=== PATIENT | female | born 1940 | race Caucasian/White ===

== ENCOUNTER 2016-05-11 18:39 | Inpatient (IN) | payer OTHER, MEDICARE ==
[~2016-05-11] VITALS: Ht 154.9 cm; Wt 46.3 kg
[2016-05-11 18:52] VITALS: BP 76/37
[2016-05-11] MEDS ORDERED: Ipratropium 0.02% Inh Soln 2.5ml UD HHN ONE (19:00)
[2016-05-11] MEDS ORDERED: Albuterol ud Inhalation HHN ONE (19:00)
[2016-05-11] MEDS ORDERED: Levalbuterol Inh UD 1.25mg/0.5ml ONE (19:08)
[2016-05-11] MEDS ORDERED: Diltiazem 125mg/25ml Inj IV ONE ×2 (19:10→22:12)
[2016-05-11] MEDS ORDERED: ZYRTEC10 MG ORAL (19:16)
[2016-05-11] MEDS ORDERED: LEVOTHYROXINE100 MCG ORAL (19:16)
[2016-05-11] MEDS ORDERED: SINGULAIR10 MG ORAL (19:16)
[2016-05-11] MEDS ORDERED: CLARITIN-D 241 EACH PO (19:16)
[2016-05-11] MEDS ORDERED: DIGOXIN0.25 MG/5 PO (19:16)
[2016-05-11] MEDS ORDERED: XARELTO10 MG ORAL (19:16)
[2016-05-11] MEDS ORDERED: PANTOPRAZOLE SO40 MG ORAL (19:16)
[2016-05-11] MEDS ORDERED: HYDROCHLOROTHIA25 MG ORAL (19:16)
[2016-05-11] MEDS ORDERED: COLCRYS0.6 M1 PO (19:16)
[2016-05-11] MEDS ORDERED: VALIUM5 MG ORAL (19:16)
[2016-05-11] MEDS ORDERED: CARDIZEM60 MG ORAL (19:16)
[2016-05-11] MEDS ORDERED: K-DUR10 ME1 ORAL (19:16)
[2016-05-11] MEDS ORDERED: Diltiazem 50mg/10ml Inj IVP ONE ×2 (20:00→20:10)
[2016-05-11] MEDS ORDERED: Solu-MEDROL 125mg Inj IVP ONE (20:00)
[2016-05-11 20:03] LABS: MEAN CORPUSCULAR HEMOGLOBIN 28.6 PG (27.0-31.0); MEAN CORPUSCULAR HGB CONC 31.9 G/DL (32.0-36.0); MEAN CORPUSCULAR VOLUME 89 FL (80-99); MEAN PLATELET VOLUME 6.5 FL (6.5-10.1); PLATELET COUNT 183 K/UL (150-450); RED BLOOD COUNT 5.43 M/UL (4.20-5.40); WHITE BLOOD COUNT 18.9 K/UL (4.8-10.8)
--- NOTE | 2016-05-11 20:04 | Emergency Room Report ---
History of Present Illness General Chief Complaint: Dyspnea/Respdistress Source: Patient, EMS Present Illness HPI 75 YO F with known atrial fib on cardizem/digoxin presents with SOB since last night "because my heart rate was fast" and SOB. + Asthma. Non-smoker. Took AM dose of Dilt. Denies cough, fever/chills, chest pain, abd pain. Usually follows up at [facility]. EMS endorses Atrial fib with RVR and wheezing on exam. Allergies: Coded Allergies: LEVOFLOXACIN (Verified Allergy, Unknown, 05/11/16) Patient History Past Medical History: old chart reviewed, AFib, asthma Past Surgical History: none Pertinent Family History: none Social History: Denies: alcohol use, drug use, smoking Last Menstrual Period: na Now: No Immunizations: UTD Reviewed Nursing Documentation: PMH: Agreed, PSxH: Agreed Nursing Documentation-PMH Past Medical History: No History, Except For Hx Cardiac Problems: Yes - afib Hx Asthma: Yes Review of Systems All Other Systems: negative except mentioned in HPI Physical Exam Vital Signs Date Time Temp Pulse Resp B/P Pulse Ox O2 Delivery O2 Flow Rate FiO2 05/11/16 18:36 102.0 89 26 76/37 99 Non-Rebreather 15.0 Sp02 EP Interpretation: abnormal General Appearance: normal inspection, no apparent distress, alert, GCS 15, non -toxic, mild distress Head: normocephalic, atraumatic Eyes: bilateral eye EOMI, bilateral eye PERRL ENT: normal ENT inspection, hearing grossly normal, normal voice Neck: normal inspection, full range of motion, supple, no bony tend Respiratory: normal inspection, decreased breath sounds, wheezing Cardiovascular #1: regular rate, rhythm, no edema, no gallop, tachycardia, irregularly irregular Gastrointestinal: normal inspection, normal bowel sounds, non tender, soft, no guarding, no hernia Genitourinary: no CVA tenderness Musculoskeletal: normal inspection, back normal, normal range of motion, Aj' s Sign negative Neurologic: normal inspection, alert, oriented x3, responsive, face cleaner III-XII nml as tested, motor strength/tone normal, speech normal Psychiatric: normal inspection, judgement/insight normal, mood/affect normal Skin: normal inspection, normal color, no rash Procedures Critical Care Time Critical Care Time CC time of 35 minutes for this 75YOF with atrial fib with RVR and acute asthma exacerbation DDx includes sepsis, PNA, Presents acute SOB warm, c/o intermittent 2 days of progressive SOB, tachycardic , wheezing/reduced air movement Patient immediately placed on icu tech with rhytm strip and STAT EKG was obtained which showed rapid atrial fib with RVR Normotensive Initial management indicated: CBC, CMP, troponin, BNP, CXR, nebs, steroids, and 2x IV cardizem Possible interventions additional cardizem CC time included frequent re-exams, interpretation of labs, imaging, d/w hospitalist Critical care time of 35 minutes does not include reportable procedures. Medical Decision Making Medicare Attestation I Michael Comer MD hereby attest that the medical record entry for date of service, 03/16/16 accurately reflects signatures/notations that I made in my capacity as MD when I treated/diagnosed the above listed Medicare beneficiary. I attest that this information is true, accurate and complete to the best of my knowledge. I understand that any falsification, omission, or concealment of material fact may subject me to administrative, civil, or criminal liability. This patient warrants hospital admission for extreme of age and has a condition that cannot be treated as outpatient. Diagnostic Impression: Primary Impression: Dyspnea Qualified Codes: R06.00 - Dyspnea, unspecified Additional Impressions: Atrial fibrillation with rapid ventricular response Asthma exacerbation Pneumonia Qualified Codes: J18.9 - Pneumonia, unspecified organism ER Course Asthma tx with nebs, IV solumedrol CXR: No PNA 2x IV doses of cardizem given along with PO dose 180mg that she takes at night Leuks: 19k. Troponin 0. H&H stable. A: Atrial fib with RVR, possible exacerbation from PNA/asthma Empiric Abx given with IVF Endorsed to Dr Boss for tele admission at 803pm EKG Diagnostic Results Rate: tachycardiac, other - Atrial fib with RVR ST Segments: other Rhythm Strip Diag. Results EP Interpretation: yes Rate: 165 Rhythm: no PVC's, no ectopy Chest X-Ray Diagnostic Results EP Interpretation: Yes Findings: no consolidation, no effusion, no pneumothorax, no acute cardiopulmonary disease Last Vital Signs Date Time Temp Pulse Resp B/P Pulse Ox O2 Delivery O2 Flow Rate FiO2 05/11/16 19:11 156 18 99 Simple Mask 05/11/16 19:10 8.0 05/11/16 18:36 102.0 76/37 Status: improved Disposition: ADMITTED INPATIENT Condition: Critical Referrals: NON PHYSICIAN (PCP) MICHAEL COMER M.D. May 11, 2016 20:04
[2016-05-11] MEDS ORDERED: cefTRIAXone 1 GM in NS 55 ML IVPB ONE (20:15)
[2016-05-11] MEDS ORDERED: Diltiazem CD 180mg cap ORAL ONE (20:15)
[2016-05-11] MEDS ORDERED: Azithromycin 500 MG in NS 275 ML IV ONE (20:15)
[2016-05-11 20:41] LABS: ALANINE AMINOTRANSFERASE 31 U/L (3-33); ANION GAP 17 (5-15); ASPARTATE AMINO TRANSFERASE 37 U/L (5-40); CALCIUM 9.1 mg/dL (8.6-10.2); CARBON DIOXIDE 24 mEQ/L (20-30); CHLORIDE 93 mEQ/L (98-107); CREATININE 0.8 mg/dL (0.5-0.9); HEMOLYSIS 43; SODIUM 134 mEQ/L (135-145)
[2016-05-11 20:45] LABS: TROPONIN I < 0.30 ng/mL (<=0.30)
[2016-05-11] MEDS ORDERED: Azithromycin Inj IV ONE (21:03)
[2016-05-11 21:16] VITALS: BP 86/49
[2016-05-11 21:39] LABS: BAND NEUTROPHILS % (MANUAL) 8 % (0-8); BASOPHILS % (MANUAL) 0 % (0-2); EOSINOPHILS % (MANUAL) 4 % (0-3); LYMPHOCYTES % (MANUAL) 4 % (20-45); NEUTROPHILS % (MANUAL) 81 % (45-75); PLATELET ESTIMATE ADEQUATE; PLATELET MORPHOLOGY NORMAL; TOTAL CELLS COUNTED 100
[2016-05-11] MEDS ORDERED: Zolpidem 5mg tab ORAL PRN (22:45)
[2016-05-11] MEDS ORDERED: DuoNeb 0.5-3(2.5)mg/3ml neb HHN SCH (23:00)
[2016-05-11 23:33] VITALS: BP 117/81
[2016-05-12] VITALS (24 sets, daily range): BP systolic 87–123; BP diastolic 42–79
[2016-05-12] MEDS ORDERED: Cefepime HCl 1 GM in D5W 55 ML IVPB SCH ×2 (00:23→09:00)
[2016-05-12] MEDS ORDERED: NS IVPB SCH ×2 (00:30→11:00)
[2016-05-12] MEDS ORDERED: VANCOMYCIN IVPB SCH ×2 (00:30→11:00)
[2016-05-12 06:04] LABS: ALANINE AMINOTRANSFERASE 25 U/L (3-33); ALBUMIN/GLOBULIN RATIO 1.2 (1.0-2.7); ANION GAP 15 (5-15); ASPARTATE AMINO TRANSFERASE 21 U/L (5-40); CALCIUM 8.8 mg/dL (8.6-10.2); CARBON DIOXIDE 24 mEQ/L (20-30); CHLORIDE 101 mEQ/L (98-107); CREATININE 0.8 mg/dL (0.5-0.9); HEMOLYSIS 13; MAGNESIUM 1.9 mg/dL (1.7-2.5); POTASSIUM 3.8 mEQ/L (3.4-4.9); SODIUM 140 mEQ/L (135-145); TOTAL PROTEIN 6.4 g/dL (6.6-8.7)
[2016-05-12 06:07] LABS: MEAN CORPUSCULAR HEMOGLOBIN 29.2 PG (27.0-31.0); MEAN CORPUSCULAR HGB CONC 33.5 G/DL (32.0-36.0); MEAN CORPUSCULAR VOLUME 87 FL (80-99); MEAN PLATELET VOLUME 7.1 FL (6.5-10.1); PLATELET COUNT 172 K/UL (150-450); RED BLOOD COUNT 4.79 M/UL (4.20-5.40); RED CELL DISTRIBUTION WIDTH 12.5 % (11.6-14.8); WHITE BLOOD COUNT 16.1 K/UL (4.8-10.8)
[2016-05-12 06:16] LABS: TROPONIN I < 0.30 ng/mL (<=0.30)
[2016-05-12] MEDS: Solu-MEDROL 40mg Inj IVP SCH ×3 (06:55→22:06)
[2016-05-12] MEDS ORDERED: NITROFURANTOIN100 M2 ORAL (08:50)
--- NOTE | 2016-05-12 10:43 | Diagnostic Imaging Report ---
Indication: SOB Technique: One view of the chest Comparison: none Findings: Lungs and pleural spaces are clear. Heart size is normal. There is a left chest pacemaker Impression: No acute process
[2016-05-12] MEDS: Cefepime HCl 1 GM in D5W 55 ML IVPB SCH (10:45)
--- NOTE | 2016-05-12 11:11 | Cardiology Progress Note ---
Assessment/Plan Assessment/Plan [id number] permenent afib tachy due to fever and infection hso of pacemaker implantation medtronic device acute ferile illness uti recently hs of asthma recent gi sx source of fever not clear keep on dilt and xarelto stop diuretic iv hydration echo repeat ekg iv abx as per dr figueroa if hr controlled and bp is fien may be maya ns bolus if needed orthostatic vitals urien studies dig level sent resusl pending hold dig unitl level is knwon to make sure not dig toxic Objective Last 24 Hour Vital Signs Date Time Temp Pulse Resp B/P Pulse Ox O2 Delivery O2 Flow Rate FiO2 05/12/16 09:35 98.7 99 21 103/72 94 Room Air 2.0 05/12/16 08:46 98.7 99 24 116/65 90 Room Air 05/12/16 06:40 92 15 105/42 97 Room Air 05/12/16 05:40 86 15 110/53 100 Room Air 05/12/16 03:30 95 15 113/64 99 Nasal Cannula 2.0 05/12/16 02:15 113 15 87/43 99 Nasal Cannula 2.0 05/12/16 01:30 124 15 99/52 99 Nasal Cannula 3.0 05/11/16 23:33 98.2 116 15 117/81 99 Nasal Cannula 3.0 05/11/16 22:36 138 117/81 05/11/16 21:16 99.3 115 15 86/49 99 Simple Mask 6.0 05/11/16 20:23 123 111/75 05/11/16 20:08 166 111/75 05/11/16 20:07 178 113/77 05/11/16 20:05 112 15 99 Simple Mask 6.0 05/11/16 19:11 156 18 99 Simple Mask 05/11/16 19:10 159 26 Simple Mask 8.0 05/11/16 18:52 102.0 178 26 76/37 99 Non-Rebreather 15.0 05/11/16 18:52 89 26 Non-Rebreather 15.0 05/11/16 18:36 102.0 89 26 76/37 99 Non-Rebreather 15.0 Intake and Output 05/11/16 05/12/16 19:00 07:00 Intake Total 140 ml Balance 140 ml Intake Oral 140 ml Laboratory Tests Test 05/11/16 19:25 05/12/16 05:30 05/12/16 07:45 White Blood Count 18.9 K/UL (4.8-10.8) H 16.1 K/UL (4.8-10.8) H Red Blood Count 5.43 M/UL (4.20-5.40) H 4.79 M/UL (4.20-5.40) Hemoglobin 15.5 G/DL (12.0-16.0) 14.0 G/DL (12.0-16.0) Hematocrit 48.6 % (37.0-47.0) H 41.8 % (37.0-47.0) Mean Corpuscular Volume 89 FL (80-99) 87 FL (80-99) Mean Corpuscular Hemoglobin 28.6 PG (27.0-31.0) 29.2 PG (27.0-31.0) Mean Corpuscular Hemoglobin Concent 31.9 G/DL (32.0-36.0) L 33.5 G/DL (32.0-36.0) Red Cell Distribution Width 12.0 % (11.6-14.8) 12.5 % (11.6-14.8) Platelet Count 183 K/UL (150-450) 172 K/UL (150-450) Mean Platelet Volume 6.5 FL (6.5-10.1) 7.1 FL (6.5-10.1) Neutrophils (%) (Auto) % (45.0-75.0) % (45.0-75.0) Lymphocytes (%) (Auto) % (20.0-45.0) % (20.0-45.0) Monocytes (%) (Auto) % (1.0-10.0) % (1.0-10.0) Eosinophils (%) (Auto) % (0.0-3.0) % (0.0-3.0) Basophils (%) (Auto) % (0.0-2.0) % (0.0-2.0) Differential Total Cells Counted 100 Neutrophils % (Manual) 81 % (45-75) H Lymphocytes % (Manual) 4 % (20-45) L Monocytes % (Manual) 3 % (1-10) Eosinophils % (Manual) 4 % (0-3) H Basophils % (Manual) 0 % (0-2) Band Neutrophils 8 % (0-8) Platelet Estimate Adequate Platelet Morphology Normal Red Blood Cell Morphology Normal Sodium Level 134 mEQ/L (135-145) L 140 mEQ/L (135-145) Potassium Level 4.0 mEQ/L (3.4-4.9) 3.8 mEQ/L (3.4-4.9) Chloride Level 93 mEQ/L (98-107) L 101 mEQ/L (98-107) Carbon Dioxide Level 24 mEQ/L (20-30) 24 mEQ/L (20-30) Anion Gap 17 (5-15) H 15 (5-15) Blood Urea Nitrogen 14 mg/dL (7-23) 15 mg/dL (7-23) Creatinine 0.8 mg/dL (0.5-0.9) 0.8 mg/dL (0.5-0.9) Estimat Glomerular Filtration Rate mL/min (>60) mL/min (>60) Glucose Level 134 mg/dL (74-106) H 259 mg/dL (74-106) #H Lactic Acid Level 1.60 mmol/L (0.66-2.22) Calcium Level 9.1 mg/dL (8.6-10.2) 8.8 mg/dL (8.6-10.2) Total Bilirubin 0.8 mg/dL (0.0-1.2) 0.4 mg/dL (0.0-1.2) Aspartate Amino Transf (AST/SGOT) 37 U/L (5-40) 21 U/L (5-40) Alanine Aminotransferase (ALT/SGPT) 31 U/L (3-33) 25 U/L (3-33) Alkaline Phosphatase 121 U/L (35-104) H 98 U/L (35-104) Total Creatine Kinase 50 U/L (26-140) Creatine Kinase MB Pending Troponin I < 0.30 ng/mL (<=0.30) < 0.30 ng/mL (<=0.30) Pro-B-Type Natriuretic Peptide 1565 pg/mL (0-450) H Total Protein 7.0 g/dL (6.6-8.7) 6.4 g/dL (6.6-8.7) L Albumin 3.6 g/dL (3.5-5.2) 3.5 g/dL (3.5-5.2) Globulin 3.4 g/dL 2.9 g/dL Albumin/Globulin Ratio 1.0 (1.0-2.7) 1.2 (1.0-2.7) Magnesium Level 1.9 mg/dL (1.7-2.5) Digoxin Level Pending MACHELLE CALL May 12, 2016 11:11
[2016-05-12] MEDS ORDERED: Vancomycin 750mg Inj IVPB ONE ×2 (11:30→23:50)
[2016-05-12] MEDS: Digoxin 0.125mg tab ORAL SCH (11:36)
[2016-05-12] MEDS: Montelukast 10mg tablet ORAL SCH (11:36)
--- NOTE | 2016-05-12 12:11 | History & Physical ---
History and Physical History & Physicial dict FABIMICHAEL PULIDO May 12, 2016 12:11
[2016-05-12] MEDS ORDERED: Levalbuterol Inh UD 1.25mg/0.5ml HHN ONE (13:00)
[2016-05-12] MEDS: Vancomycin 750 MG in NS 275 ML IVPB SCH (14:27)
--- NOTE | 2016-05-12 14:43 | Cardiology Report ---
APPROVED REPORT EXAM: Two-dimensional and M-mode echocardiogram with Doppler and color Doppler. INDICATION Atrial Fibrillation M-Mode DIMENSIONS IVSd0.5 (0.7-1.1cm)Left Atrium (MM)4.7 (1.6-4.0cm) LVDd5.3 (3.5-5.6cm)Aortic Root2.3 (2.0-3.7cm) PWd0.8 (0.7-1.1cm)Aortic Cusp Exc.1.7 (1.5-2.0cm) LVDs3.9 (2.5-4.0cm) PWs0.7 cm Normal left ventricular chamber size, systolic function and wall motion. Left ventricular ejection fraction estimated to be 60-65%. No evidence of left ventricular hypertrophy. No evidence of pericardial fat or effusion. Mild bi-atrial enlargement by 2D. Focal aortic valve sclerosis with adequate cusp excursion Thickened mitral valve leaflets with normal excursion. Mitral annulus and aortic root calcification. Pulmonic valve not well visualized. Normal tricuspid valve structure. IVC is normal in size with minimal physiologic collapse. RA pressure of 10mmHg. Probable pacemaker wire present in the right side chambers. A color flow and spectral Doppler study was performed and revealed: No aortic regurgitation. No mitral regurgitation. Left ventricular diastolic dysfunction not obtainable due to A-FIB. Moderate tricuspid regurgitation. Tricuspid systolic velocities suggests peak right ventricular systolic pressure of 48 mmHg Consistent with moderate pulmonary hypertension.
[2016-05-12] MEDS ORDERED: Albuterol ud Inhalation HHN PRN (18:30)
[2016-05-12] MEDS: Xarelto 15mg tab ORAL SCH (18:53)
--- NOTE | 2016-05-12 19:37 | History and Physical Report ---
DATE OF ADMISSION: 05/11/2016 HISTORY OF PRESENT ILLNESS: The patient is a 75-year-old woman who comes to the emergency department by paramedics because of weakness and shortness of breath with wheezing. She states that she became ill about two or three days ago with a poor appetite and nausea. She felt weak and developed a rash on her lower legs. She went to the traffic technician and was given some topical medication. She got weaker and called the paramedics. She is known to have paroxysmal and now permanent atrial fibrillation. She was found to have rapid atrial fibrillation on arrival and was wheezing due to asthma. She improved with breathing treatments and medications. She had leukocytosis and she had fever up to 102 degrees, but the source is not clear. The white count was elevated. She does not have signs of urinary tract infection, although urine specimen has not been obtained yet. PAST MEDICAL HISTORY: Pacemaker, atrial fibrillation, skin rash, asthma, and hyperlipidemia. MEDICATIONS: Medications reviewed and reconciled. ALLERGIES: Statin medications, Levaquin and citalopram. REVIEW OF SYSTEMS: Otherwise unremarkable. She denies chest pain or palpitations. She has no diarrhea. She has not vomited. PHYSICAL EXAMINATION: GENERAL: The patient is alert and responds appropriately. She is thin and appears to be her stated age. VITAL SIGNS: The temperature was up to 102 degrees, but now it is down to normal. The blood pressure is normal. Other vital signs are normal except for tachycardia with atrial fibrillation on the monitor, the heart rate was as high as 178 at which time, the blood pressure was very low on admission at 76/37. Now the blood pressure is normal at 103/72. SKIN: Warm and dry. There is a purpuric rash on the lower legs HEENT: The head is normocephalic. NECK: Neck veins not distended. CHEST: The chest has a pacemaker. LUNGS: Clear. CARDIAC: Rhythm is irregular. ABDOMEN: Soft and nontender. EXTREMITIES: No clubbing, cyanosis, or edema. LABORATORY AND DIAGNOSTIC DATA: White count is elevated at 18,900, hemoglobin 16.5, and platelets are normal. Coagulation parameters are pending. Electrolytes are normal. Kidney function is normal. Blood sugar slightly elevated at 134 and repeat was 259. Troponin negative. BNP 1565. Urinalysis is pending. Chest x-ray is negative. IMPRESSION: 1. Rapid atrial fibrillation. 2. Fever and leukocytosis, etiology unclear. 3. Asthma. 4. Hyperlipidemia. 5. Hyperglycemia. PLAN: The patient will be treated with the cardiac medications as recommended by the consultant internship and we will give Atrovent for asthma and antibiotics will be given after cultures obtained. Maxx Boss M.D. DR: AJ JOB#: [id number] CC: Alfredo Mora M.D. Shaun Daneshrad, M.D.
--- NOTE | 2016-05-12 20:57 | Consultation ---
DATE OF CONSULTATION: 05/12/2016 CARDIOLOGY CONSULTATION CONSULTING PHYSICIAN: Vin Mckinley M.D. REFERRING PHYSICIAN: Kasey Dong M.D. REASON FOR REFERRAL: Tachycardia. HISTORY OF PRESENT ILLNESS: This is an elderly female, who is living between [facility] and [place] with the patient's family, has a history of atrial fibrillation, for which she has had rate control. She has had possibly even one cardioversion in [place] where she resides. She has been visiting here, ate something on Wednesday or Wednesday, did not agree with her, started to have some stomach discomfort on Wednesday. Then, eventually yesterday, she was not feeling well at all, was started getting weaker and weaker and spent the day in bed, had some shortness of breath and some wheezing, really was not able to walk and was quite debilitated, and presented to the emergency room at [facility] and was noted to have severe atrial fibrillation with rapid ventricular response and has been admitted to the hospital subsequently for further evaluation and management. The patient does not have any chest pain. There is no PND or orthopnea. No palpitations. No dizziness or lightheadedness except for some yesterday when she tried to get move around. She, in the emergency room, has been noted to have significant tachycardia. PAST MEDICAL HISTORY: Positive for history of atrial fibrillation. She has had history of permanent pacemaker implantation. She has had hypothyroidism. She has had low blood pressure previously. She has had asthma before. No history of heart attack. No cancer. No stroke. No hepatitis or tuberculosis. No ulcers. No kidney problems, liver problems, anemia, or arthritis. MEDICATIONS: She is on medications of hydrochlorothiazide 25 mg, Synthroid 0.1 mg a day, potassium 10 mEq daily, Protonix 40 mg twice a day, Cardizem CD 180 mg twice a day, Claritin, Singulair one time a day, digoxin 0.25 mg daily, Valium 5 mg at night, Xarelto 15 mg at bedtime, Zyrtec 1 tablet a day, colchicine 0.6 mg 1 to 2 tablets as needed. Inhalers, QVAR 80 mcg once a day and Spiriva inhaler 18 mcg on a daily basis. Multivitamins, CholestOff, Tri-[place], and vitamin D 1000, and Lexapro 5 mg one time a day. Her pacemaker is a Medtronic device, it is model [id number], implanted in [place]. REVIEW OF SYSTEMS: Gastrointestinal: She has had some stomach upset, although no vomiting. No diarrhea. No bloody or black stool. Genitourinary: She does not have any discomfort on urination, although she one week ago was treated with a course of antibiotics. Pulmonary: She has some wheezing. No significant coughing. No sputum production. Constitutional: She has had some fevers and chills. Neurologic: Negative. PHYSICAL EXAMINATION: GENERAL: An elderly female, in no apparent respiratory distress. NECK: Supple. No jugular venous distention. LUNGS: Appear to be relatively clear to auscultation and percussion. She does have few end-expiratory wheezes. No significant crackles are noted. Her abdomen is soft and nontender. Positive bowel sounds. EXTREMITIES: She does have some ecchymosis to the lower extremities or petechial rash on the lower extremities. I noted a trivial amount of effusion. LABORATORY AND DIAGNOSTIC DATA: White count is 16.1, down from 18.9 with a hemoglobin of 14 and platelet count of 160313, 81 polys, 4 lymphs, 3 monos, and 4 eosinophils, and 8 banded neutrophils. Sodium is 140, potassium 3.8, chloride 101, bicarbonate 24, BUN of 15, and creatinine 0.8. Her sodium was 134 when she presented to the emergency room yesterday. Troponins are negative on two separate occasions. Her proBNP was 1500, and her liver function tests appeared to be normal. Toxicology screen, digoxin level is pending at this time. Her EKG in the emergency room performed shows right bundle-branch conduction defect with atrial fibrillation with rapid ventricular response. She has ST-segment changes in II, III, and aVF, pretty much several of these, some of which are related to the right bundle conduction defect. Her chest x-ray looks fairly unremarkable on my reading. ASSESSMENT: 1. Acute febrile reaction. 2. Atrial fibrillation with rapid ventricular response. 3. History of permanent pacemaker implantation. 4. Hypothyroidism, on supplemental therapy. 5. History of asthma. 6. Bronchospasm at the time of admission. 7. Petechial rash on the lower extremities, apparently chronic. 8. History of recent urinary tract infection. PLAN: Dr. Dong, this patient was seen in cardiac consultation. The patient's heart rate initially was not controlled. At present, her heart rate appears to be better controlled on the monitor. I will request an EKG to be performed. It is possible that her tachycardias were just related to the fact that she was febrile last night. Continue with the dose of diltiazem if the blood pressure does allow. We will discontinue the use of hydrochlorothiazide for the time being and we will focus on possibly some hydration. An echocardiogram will be ordered to evaluate left ventricular systolic function and to help guide fluid therapy if needed. The source of her infection is really not clear at the present time. She certainly needs to have a urinalysis since she had a recent urinary tract infection. She does have some wheezing. It is possible that her generalized weakness that she experienced is probably related to that infectious process. At the present time, her hemodynamics are borderline adequate. Heart rate actually is controlled. She should be continued on her Xarelto for the time being and I will follow the patient along with you. Vin Mckinley M.D. DR: MARCELO JOB#: [id number] CC:
[2016-05-12] MEDS: BETAMETHASONE 0.05% TOPIC SCH (22:06)
[2016-05-13] VITALS (48 sets, daily range): BP systolic 12–151; BP diastolic 38–117
[2016-05-13] MEDS: Vancomycin 750 MG in NS 275 ML IVPB SCH ×2 (00:21→11:53)
[2016-05-13] MEDS: Solu-MEDROL 40mg Inj IVP SCH ×2 (06:29→14:53)
[2016-05-13 06:57] LABS: MEAN CORPUSCULAR HEMOGLOBIN 29.8 PG (27.0-31.0); MEAN CORPUSCULAR HGB CONC 33.5 G/DL (32.0-36.0); MEAN CORPUSCULAR VOLUME 89 FL (80-99); MEAN PLATELET VOLUME 7.8 FL (6.5-10.1); PLATELET COUNT 161 K/UL (150-450); RED BLOOD COUNT 4.13 M/UL (4.20-5.40); RED CELL DISTRIBUTION WIDTH 12.9 % (11.6-14.8)
[2016-05-13 07:12] LABS: WHITE BLOOD COUNT 22.7 K/UL (4.8-10.8)
[2016-05-13 07:20] LABS: ALANINE AMINOTRANSFERASE 61 U/L (3-33); ANION GAP 12 (5-15); ASPARTATE AMINO TRANSFERASE 54 U/L (5-40); CALCIUM 8.9 mg/dL (8.6-10.2); CARBON DIOXIDE 24 mEQ/L (20-30); CHLORIDE 107 mEQ/L (98-107); CREATININE 0.6 mg/dL (0.5-0.9); HEMOLYSIS 3; MAGNESIUM 2.1 mg/dL (1.7-2.5); POTASSIUM 3.6 mEQ/L (3.4-4.9); SODIUM 143 mEQ/L (135-145); TOTAL PROTEIN 6.5 g/dL (6.6-8.7)
[2016-05-13 07:21] LABS: INR 1.5 (0.9-1.1); PROTHROMBIN TIME 15.6 SEC (9.30-11.50)
[2016-05-13 07:50] LABS: TROPONIN I < 0.30 ng/mL (<=0.30)
[2016-05-13] MEDS: Metamucil Pkt ORAL SCH (08:12)
[2016-05-13 08:31] LABS: BAND NEUTROPHILS % (MANUAL) 1 % (0-8); BASOPHILS % (MANUAL) 0 % (0-2); EOSINOPHILS % (MANUAL) 1 % (0-3); LYMPHOCYTES % (MANUAL) 9 % (20-45); NEUTROPHILS % (MANUAL) 84 % (45-75); PLATELET ESTIMATE ADEQUATE; PLATELET MORPHOLOGY NORMAL; TOTAL CELLS COUNTED 100
[2016-05-13] MEDS: Montelukast 10mg tablet ORAL SCH (08:43)
[2016-05-13] MEDS: BETAMETHASONE 0.05% TOPIC SCH ×2 (08:43→18:19)
[2016-05-13] MEDS: Digoxin 0.125mg tab ORAL SCH (08:44)
[2016-05-13] MEDS: Cefepime HCl 1 GM in D5W 55 ML IVPB SCH (10:13)
--- NOTE | 2016-05-13 10:58 | Consultation ---
DATE OF CONSULTATION: 05/12/16 CARDIOLOGY CONSULT: CONSULTING PHYSICIAN: Calvin Newell M.D. REQUESTING PHYSICIAN: Maxx Boss M.D. REASON FOR CONSULTATION: Rapid atrial fibrillation. HISTORY OF PRESENT ILLNESS: This elderly female who is brought in by family members. She has had stomach pain and weakness over the past day or two. Weakness progressed and she was brought to the emergency room, as she was noted to have rapid atrial fibrillation as well as signs of an acute infection. She did not have any chest pain or dizziness note that she have any elevation in her troponin while in the emergency room. PAST MEDICAL HISTORY: Paroxysmal atrial fibrillation, permanent pacemaker, and asthma. MEDICATIONS: Reviewed and reconciled. REVIEW OF SYSTEMS: There is no history of myocardial infarction, rheumatic heart disease, endocarditis. She has a Medtronic pacemaker. The patient is on rivaroxiban for cardioembolic prophylaxis. PHYSICAL EXAMINATION: VITAL SIGNS: Temperature 102.0 degrees, blood pressure 76/37, heart rate 89 initially and subsequently 140, respiratory rate 26. HEENT: Conjunctivae pink. Sclerae anicteric. Oropharynx clear. NECK: Supple. LUNGS: Diminished breath sounds and expiratory wheezing. CARDIAC: Irregularly irregular rhythm. Rapid rate. Normal S1 and S2. ABDOMEN: Soft. EXTREMITIES: No edema. DIAGNOSTIC AND LABORATORY DATA: EKG revealed atrial fibrillation, rapid ventricular response, and nonspecific ST change. Troponin negative. Chest x-ray with no acute process. White count 18.9, hemoglobin 15.5. Sodium 135, potassium 4, chloride 92, bicarbonate 24, BUN 14, creatinine 0.8, lactic acid 1.6, antinatriuretic peptide 1500. Troponin is negative. Albumin 3.6. Atrial fibrillation with rapid ventricular response, chronic diastolic congestive heart failure, hypovolemia and dehydration with hyponatremia and hypochloremia, probable sepsis source unclear, rivaroxiban associated coagulopathy, and asthma with acute bronchospasm. RECOMMENDATIONS: Case was discussed with the emergency room physician in detail, as the Cardizem was recommended with bolus followed by drip and titration for rate control optimization. PLAN: Panculture, broad spectrum antibiotics, cautious hydration, intravenous steroids, avoid inhaled bronchodilators in view of tachyarrhythmias at this time. Calvin Newell M.D. DR: BENJI JOB#: [id number] CC: KASHIF
[2016-05-13 11:06] LABS: APPEARANCE,URINE CLEAR; KETONES,URINE NEGATIVE (NEGATIVE); LEUKOCYTE ESTERASE ,URINE NEGATIVE (NEGATIVE); NITRITE,URINE NEGATIVE (NEGATIVE); PH,URINE 6 (4.5-8.0); PROTEIN,URINE NEGATIVE (NEGATIVE); UROBILINOGEN,URINE NORMAL MG/DL (0.0-1.0)
[2016-05-13 11:16] LABS: BACTERIA,URINE FEW /HPF; RBC,URINE 0-2 /HPF (0 - 2); SQUAMOUS EPITHELIAL CELL,UR OCCASIONAL /LPF (NONE/OCC); WBC,URINE 0-2 /HPF (0 - 2)
[2016-05-13] MEDS ORDERED: Levalbuterol Inh UD 1.25mg/0.5ml HHN PRN ×3 (11:45→11:50)
[2016-05-13] MEDS ORDERED: Levalbuterol Inh UD 1.25mg/0.5ml ONE (11:45)
[2016-05-13 13:29] LABS: THYROID STIMULATING HORMONE 0.022 uIU/mL (0.300-4.500)
[2016-05-13 14:30] LABS: CKMB < 1.5 ng/mL (< 3.8)
[2016-05-13] MEDS: Xarelto 15mg tab ORAL SCH (16:20)
--- NOTE | 2016-05-13 17:08 | Consultation ---
DATE OF CONSULTATION: 05/13/2016 INFECTIOUS DISEASE CONSULTATION This consult is for coverage of Dr. Cardenas. PRIMARY ATTENDING PHYSICIAN: Maxx Boss M.D. REASON FOR CONSULTATION: Sepsis. HISTORY OF PRESENT ILLNESS: The patient is a 75-year-old white female, admitted on 05/11/2016 from home with shortness of breath, was found to have tachycardia, wheezing, and had a fever of 102 degrees at the hospital. The patient states that one week before admission, she had dysuria and UTI. She went to a doctor and got some medication that was twice a day. After five days, she developed rash in the lower extremity. At this time, she visited the corncob pipes assembler, who gave her ointment. Few days ago, started not feeling good, was weak, shaking, and shortness of breath. PAST MEDICAL HISTORY: The patient had a history of atrial fibrillation, asthma, dyslipidemia, hypothyroidism, and a rash as mentioned. PAST SURGICAL HISTORY: Status post pacemaker four years ago. MEDICATIONS: Spiriva, Metamucil, diltiazem IV, Protonix, topical betamethasone, cetirizine, Valium, colchicine, vitamin D, albuterol, Xarelto, vancomycin, cefepime, Singulair, methylprednisolone, and Tylenol. ALLERGIES: Lexapro and Levaquin. SOCIAL HISTORY: Lives at home. . Originally from [place] and had frequent visit to [place]. Nonsmoker. . Grandchildren have dog. The patient is allergic to dog and dust. REVIEW OF SYSTEMS: No runny nose and no sore throat. The patient presents with fast heart rate. Has shortness of breath. No significant coughing. She has constipation. She had nausea before admission. No urinary problems at the present time. Has some itching sensation in the legs at the site of rash. PHYSICAL EXAMINATION: VITAL SIGNS: Pulse rate is 106, respiratory rate is 16, and blood pressure 130/75. Temperature at the time of admission was 102 degrees. HEAD AND NECK: [place] conjunctivae. No oral lesions. HEART: S1 and S2. The patient is tachycardic. Has pacemaker in the left side of the chest. LUNGS: Clear with decreased sounds. ABDOMEN: Soft and nontender. EXTREMITIES: No edema. SKIN: Has macular rash in the lower extremities and chin area. No open skin lesions. LABORATORY DATA: WBC 23.7, hemoglobin 12.3, hematocrit 36.7, and platelets is 161,000. Sodium of 43, potassium 3.6, chloride 107, bicarbonate 24, BUN 12, and creatinine 0.6. Glucose 153. AST 54 and ALT 61. Albumin is 3.3. The patient had an echocardiogram that showed normal ejection fraction. Influenza test was negative. Blood culture x2 are so far negative. Chest x-ray was negative. IMPRESSION: Sepsis with fever. Leukocytosis. The patient is empirically started on antibiotics that is responding to it. The patient has atrial fibrillation with rapid ventricular rate. She had hyperglycemia and leukocytosis that may be partially related to steroids. Has asthma, chronic obstructive pulmonary disease, and hypothyroidism. Had history of pseudo gout, questionable allergic reaction to antibiotics, and have rash in lower extremities. RECOMMENDATIONS: We will continue with cefepime and vancomycin. We will follow up the UA and culture. We will follow up other cultures. At the end of my exam, I thank Dr. Boss for involving me in the care of this patient. Jimbo Bowling M.D. DR: LUCIA JOB#: [id number] CC: KASHIF
--- NOTE | 2016-05-13 19:13 | Critical Care Progress Note ---
Assessment/Plan Assessment/Plan 1. Rapid atrial fibrillation. 2. Fever and leukocytosis, etiology unclear. 3. Asthma. 4. Hyperlipidemia. 5. Hyperglycemia. A fib up to 170/min no indication for steroids, may mask fever WBC higher - infection or steroids? DC steroids flu swab neg, UA neg BC neg TSH low - reduce dose of Synthroid anxious, rx Valium left msg for her PMD, Dr Parker disc w , Dr Newell Critical Care - Subjective EKG Rhythm: Atrial Fibrillation I&O: Intake and Output 05/12/16 05/13/16 19:00 07:00 Intake Total 680.0 ml 1363.0 ml Output Total 0 ml 1650 ml Balance 680.0 ml -287.0 ml Intake Oral 120 ml IV Total 680.0 ml 1243.0 ml Output Urine Total 0 ml 1650 ml Critical Care - Objective Last 24 Hour Vital Signs Date Time Temp Pulse Resp B/P Pulse Ox O2 Delivery O2 Flow Rate FiO2 05/13/16 18:00 76 18 117/86 98 Nasal Cannula 2.0 05/13/16 17:00 76 18 132/78 98 Nasal Cannula 2.0 05/13/16 16:30 78 19 117/81 99 Nasal Cannula 2.0 05/13/16 16:00 97.8 86 20 141/62 97 Nasal Cannula 2.0 05/13/16 16:00 94 05/13/16 15:30 86 21 122/84 97 Nasal Cannula 2.0 05/13/16 15:00 84 19 110/60 97 Nasal Cannula 2.0 05/13/16 14:30 113 24 99/86 98 Nasal Cannula 2.0 05/13/16 14:00 109 24 128/80 97 Nasal Cannula 2.0 05/13/16 13:30 112 23 142/89 97 Nasal Cannula 2.0 05/13/16 13:00 106 22 124/82 98 Nasal Cannula 2.0 05/13/16 12:30 101 21 128/63 98 Nasal Cannula 2.0 05/13/16 12:00 96.7 99 21 123/98 97 Nasal Cannula 2.0 05/13/16 12:00 105 05/13/16 11:57 92 18 97 Nasal Cannula 2.0 28 05/13/16 11:57 97 18 98 Nasal Cannula 2.0 28 05/13/16 11:57 28 05/13/16 11:30 97 22 126/99 99 Nasal Cannula 2.0 05/13/16 11:00 97 22 151/67 99 Nasal Cannula 2.0 05/13/16 10:30 134 22 144/79 98 Nasal Cannula 2.0 05/13/16 10:00 116 22 112/70 95 Nasal Cannula 2.0 05/13/16 09:30 125 22 100/73 98 Nasal Cannula 2.0 05/13/16 09:24 97 Nasal Cannula 2.0 28 05/13/16 09:24 106 16 Nasal Cannula 2.0 28 05/13/16 09:24 Nasal Cannula 2.0 28 05/13/16 09:00 120 22 122/90 99 Nasal Cannula 2.0 05/13/16 08:44 140 05/13/16 08:30 120 23 130/67 99 Nasal Cannula 2.0 05/13/16 08:00 108 05/13/16 08:00 97.0 132 23 122/96 98 Nasal Cannula 2.0 05/13/16 07:30 101 21 115/92 98 Nasal Cannula 2.0 05/13/16 07:00 107 18 130/75 96 Room Air 05/13/16 06:30 99 18 108/78 96 Room Air 05/13/16 06:00 90 18 123/83 96 Room Air 05/13/16 06:00 110 18 114/99 96 Room Air 05/13/16 05:30 100 20 107/75 96 Room Air 05/13/16 05:00 95 20 110/38 96 Room Air 05/13/16 04:30 95 20 94/63 96 Room Air 05/13/16 04:00 83 05/13/16 04:00 97.8 121 20 112/60 96 Room Air 05/13/16 03:30 79 20 123/65 96 Room Air 05/13/16 03:00 81 20 114/78 96 Room Air 05/13/16 02:30 84 20 101/76 96 Room Air 05/13/16 02:00 80 20 110/71 96 Room Air 05/13/16 01:32 90 20 108/63 96 Room Air 05/13/16 01:00 110 20 100/67 96 Room Air 05/13/16 00:30 89 20 107/71 96 Room Air 05/13/16 00:25 85 100/58 05/13/16 00:23 85 100/58 05/13/16 00:00 97.7 85 20 100/58 97 Room Air 05/13/16 00:00 85 05/12/16 23:30 85 18 98/59 97 Room Air 05/12/16 23:02 86 21 96 Nasal Cannula 2.0 28 05/12/16 23:00 89 19 110/74 97 Room Air 05/12/16 22:53 Nasal Cannula 2.0 28 05/12/16 22:53 96 Nasal Cannula 2.0 28 05/12/16 22:51 93 14 Nasal Cannula 2.0 28 05/12/16 22:51 28 05/12/16 22:50 93 14 96 Nasal Cannula 2.0 28 05/12/16 22:30 105 19 113/66 97 Room Air 05/12/16 22:00 83 20 113/79 98 Room Air 05/12/16 21:30 82 20 108/63 99 Nasal Cannula 2.0 05/12/16 21:00 83 17 96/62 98 Nasal Cannula 2.0 05/12/16 20:30 92 18 104/67 98 Nasal Cannula 2.0 05/12/16 20:00 87 20 107/63 95 Nasal Cannula 2.0 05/12/16 20:00 97.9 05/12/16 20:00 93 05/12/16 19:30 92 21 95/71 98 Nasal Cannula 2.0 Status: awake, alert Neck: no JVD Lungs: clear Heart: tachycardia, irregularly irregular Abdomen: non-tender Extremities: no C/C/E Micro: Microbiology Date/Time Source Procedure Growth Status 05/11/16 19:35 Blood Blood Culture - Preliminary NO GROWTH AFTER 24 HOURS Resulted 05/11/16 19:25 Blood Blood Culture - Preliminary NO GROWTH AFTER 24 HOURS Resulted 05/13/16 08:50 Nose Influenza Types A,B Antigen (OSMANY) - Final Complete MICHAEL AMADO May 13, 2016 19:13
[2016-05-13] MEDS ORDERED: Vancomycin 1gm/D5W 275ml IVPB SCH ×2 (23:00)
[2016-05-13] MEDS ORDERED: KCl 10% 20 mEq/15ml liquid NG ONE (23:30)
[2016-05-13] MEDS: Diltiazem CD 180mg cap ORAL SCH (23:42)
[2016-05-14] VITALS (16 sets, daily range): BP systolic 94–138; BP diastolic 46–92
[2016-05-14 05:47] LABS: MEAN CORPUSCULAR HEMOGLOBIN 28.9 PG (27.0-31.0); MEAN CORPUSCULAR HGB CONC 32.8 G/DL (32.0-36.0); MEAN CORPUSCULAR VOLUME 88 FL (80-99); MEAN PLATELET VOLUME 7.1 FL (6.5-10.1); PLATELET COUNT 193 K/UL (150-450); RED BLOOD COUNT 4.37 M/UL (4.20-5.40); RED CELL DISTRIBUTION WIDTH 12.8 % (11.6-14.8); WHITE BLOOD COUNT 18.3 K/UL (4.8-10.8)
--- NOTE | 2016-05-14 05:57 | Progress Note ---
05/13/2016 CARDIOLOGY PROGRESS NOTE SUBJECTIVE: The patient has multiple complaints. She is anxious to get out of bed, ambulate, and leave the hospital. Her has surgery in a couple of days. She has no fevers, but still has congestion and shortness of breath and her leg rash has not improved. She notes that it was present prior to admission and it is a recurring problem that she uses steroid cream for with response. The patient was made aware of her elevated white count and told that while it was elevated on admission due to infection, it may still be elevated due to steroid therapy now. The patient's monitored rhythm is atrial fibrillation with demand ventricular pacing and has been rate controlled for the past 24 hours. OBJECTIVE: VITAL SIGNS: Blood pressure 132/78, pulse 76, and respirations 18. HEENT: Conjunctiva pink. Oropharynx clear. LUNGS: With coarse breath sounds with no wheezing. CARDIAC: Irregular. Normal S1 and S2. ABDOMEN: Soft. EXTREMITIES: Trace edema. SKIN: Pretibial erythematous rash. LABORATORY AND DIAGNOSTIC DATA: White count 22.7 and hemoglobin 12.3. Potassium 3.6. Troponin negative. Cultures reviewed negative. IMPRESSION: 1. Atrial fibrillation, now with controlled ventricular response, permanent pacemaker. 2. Sepsis, source unclear. 3. Acute bronchospasm with underlying asthma. 4. Rash, bilateral lower extremities. PLAN: 1. Transition from IV to oral diltiazem. Maintain digoxin and continue rivaroxaban for cardioembolic prophylaxis. 2. Antimicrobial therapy per Infectious Disease weight loss sales consultant. 3. Agree with decrease of thyroid dose in view of low TSH. Calvin Newell M.D. DR: Negrita JOB#: [id number] CC: KASHIF
[2016-05-14 06:04] LABS: ANION GAP 12 (5-15); CARBON DIOXIDE 30 mEQ/L (20-30); CHLORIDE 102 mEQ/L (98-107); CREATININE 0.5 mg/dL (0.5-0.9); HEMOLYSIS 2; POTASSIUM 3.4 mEQ/L (3.4-4.9); SODIUM 144 mEQ/L (135-145)
[2016-05-14 08:20] LABS: BAND NEUTROPHILS % (MANUAL) 0 % (0-8); BASOPHILS % (MANUAL) 0 % (0-2); EOSINOPHILS % (MANUAL) 0 % (0-3); HYPOCHROMASIA 1+; LYMPHOCYTES % (MANUAL) 7 % (20-45); NEUTROPHILS % (MANUAL) 89 % (45-75); PLATELET ESTIMATE ADEQUATE; PLATELET MORPHOLOGY NORMAL; TOTAL CELLS COUNTED 100
[2016-05-14] MEDS: Metamucil Pkt ORAL SCH (08:59)
[2016-05-14] MEDS: BETAMETHASONE 0.05% TOPIC SCH (09:00)
[2016-05-14] MEDS: Diltiazem CD 180mg cap ORAL SCH (09:02)
[2016-05-14] MEDS: Digoxin 0.125mg tab ORAL SCH (09:03)
[2016-05-14] MEDS: Montelukast 10mg tablet ORAL SCH (09:04)
--- NOTE | 2016-05-14 09:21 | Infectious Diseases Prog Note ---
Assessment/Plan Assessment/Plan A: Sepsis COPD/Asthma A fib + RVR, rate controlled Rash Leukocytosis improving P: Discontinue Vancomycin Continue Cefepime in hospital At time of discharge PO Augmentin X 3 days Subjective ROS Limited/Unobtainable: No Constitutional: Reports: no symptoms Respiratory: Reports: dry cough Cardiovascular: Reports: no symptoms Gastrointestinal/Abdominal: Reports: no symptoms Genitourinary: Reports: no symptoms Neurologic: Reports: no symptoms Allergies: Coded Allergies: ESCITALOPRAM (Verified Allergy, Unknown, 05/12/16) LEVOFLOXACIN (Verified Allergy, Unknown, 05/11/16) Objective Vital Signs Last 24 Hour Vital Signs Date Time Temp Pulse Resp B/P Pulse Ox O2 Delivery O2 Flow Rate FiO2 05/14/16 09:03 78 05/14/16 09:02 78 111/69 05/14/16 05:00 69 21 110/67 98 Nasal Cannula 2.0 05/14/16 04:00 97.3 72 21 116/92 98 Nasal Cannula 2.0 05/14/16 03:00 113 21 106/73 98 Nasal Cannula 2.0 05/14/16 02:00 105 21 109/79 98 Nasal Cannula 2.0 05/14/16 01:30 104 21 95/74 98 Nasal Cannula 2.0 05/14/16 01:00 70 21 121/73 98 Nasal Cannula 2.0 05/14/16 00:30 79 21 138/77 100 Nasal Cannula 2.0 05/14/16 00:00 72 21 126/76 100 Nasal Cannula 2.0 05/13/16 23:42 75 144/93 05/13/16 23:30 97.1 74 21 144/93 100 Nasal Cannula 2.0 05/13/16 23:00 79 21 127/76 100 Nasal Cannula 2.0 05/13/16 22:58 97.0 05/13/16 22:30 89 21 114/75 98 Nasal Cannula 2.0 05/13/16 22:00 67 21 102/85 98 Nasal Cannula 2.0 05/13/16 21:30 72 21 112/76 98 Nasal Cannula 2.0 05/13/16 21:00 83 20 127/76 95 Nasal Cannula 2.0 05/13/16 20:30 83 22 122/60 95 Nasal Cannula 2.0 05/13/16 20:00 97.0 97 20 138/117 97 Nasal Cannula 2.0 05/13/16 20:00 81 05/13/16 19:38 98 18 Nasal Cannula 2.0 28 05/13/16 19:30 89 21 145/90 98 Nasal Cannula 2.0 05/13/16 19:25 Nasal Cannula 2.0 28 05/13/16 19:25 98 Nasal Cannula 2.0 28 05/13/16 19:00 82 21 145/88 98 Nasal Cannula 2.0 05/13/16 18:30 84 21 144/80 98 Nasal Cannula 2.0 05/13/16 18:00 76 18 117/86 98 Nasal Cannula 2.0 05/13/16 17:30 79 19 132/78 95 Nasal Cannula 2.0 05/13/16 17:00 76 18 132/78 98 Nasal Cannula 2.0 05/13/16 16:30 78 19 117/81 99 Nasal Cannula 2.0 05/13/16 16:00 97.8 86 20 141/62 97 Nasal Cannula 2.0 05/13/16 16:00 94 05/13/16 15:30 86 21 122/84 97 Nasal Cannula 2.0 05/13/16 15:00 84 19 110/60 97 Nasal Cannula 2.0 05/13/16 14:30 113 24 99/86 98 Nasal Cannula 2.0 05/13/16 14:00 109 24 128/80 97 Nasal Cannula 2.0 05/13/16 13:30 112 23 142/89 97 Nasal Cannula 2.0 05/13/16 13:00 106 22 124/82 98 Nasal Cannula 2.0 05/13/16 12:30 101 21 128/63 98 Nasal Cannula 2.0 05/13/16 12:00 96.7 99 21 123/98 97 Nasal Cannula 2.0 05/13/16 12:00 105 05/13/16 11:57 92 18 97 Nasal Cannula 2.0 28 05/13/16 11:57 97 18 98 Nasal Cannula 2.0 28 05/13/16 11:57 28 05/13/16 11:30 97 22 126/99 99 Nasal Cannula 2.0 05/13/16 11:00 97 22 151/67 99 Nasal Cannula 2.0 05/13/16 10:30 134 22 144/79 98 Nasal Cannula 2.0 05/13/16 10:00 116 22 112/70 95 Nasal Cannula 2.0 05/13/16 09:30 125 22 100/73 98 Nasal Cannula 2.0 05/13/16 09:24 97 Nasal Cannula 2.0 28 05/13/16 09:24 106 16 Nasal Cannula 2.0 28 05/13/16 09:24 Nasal Cannula 2.0 28 Height (Feet): 5 Height (Inches): 1.00 Weight (Pounds): 102 General Appearance: no acute distress HEENT: PERRL Respiratory/Chest: lungs clear Cardiovascular: normal rate, irregularly irregular Abdomen: soft, non tender Extremities: no edema Skin: rash, other - macular red spots on legs Neurologic/Psychiatric: alert, oriented x 3, responsive Microbiology Date/Time Source Procedure Growth Status 05/11/16 19:35 Blood Blood Culture - Preliminary NO GROWTH AFTER 48 HOURS Resulted 05/11/16 19:25 Blood Blood Culture - Preliminary NO GROWTH AFTER 48 HOURS Resulted 05/13/16 08:50 Nose Influenza Types A,B Antigen (OSMANY) - Final Complete 05/12/16 15:30 Nasal Nares MRSA Culture - Final NO METHICILLIN RESISTANT STAPH AUREUS... Complete 05/12/16 15:30 Rectum VRE Culture - Final NO VANCOMYCIN RESISTANT ENTEROCOCCUS ... Complete Laboratory Tests Test 05/13/16 10:50 05/13/16 20:15 05/14/16 04:55 Urine Color Pale yellow Urine Appearance Clear Urine pH 6 (4.5-8.0) Urine Specific [facility] 1.010 (1.005-1.035) Urine Protein Negative (NEGATIVE) Urine Glucose (UA) Negative (NEGATIVE) Urine Ketones Negative (NEGATIVE) Urine Occult Blood 1+ (NEGATIVE) H Urine Nitrite Negative (NEGATIVE) Urine Bilirubin Negative (NEGATIVE) Urine Urobilinogen Normal MG/DL (0.0-1.0) Urine Leukocyte Esterase Negative (NEGATIVE) Urine RBC 0-2 /HPF (0 - 2) Urine WBC 0-2 /HPF (0 - 2) Urine Squamous Epithelial Cells Occasional /LPF Urine Bacteria Few /HPF (NONE) Vancomycin Level Trough 9.3 ug/mL (5.0-12.0) White Blood Count 18.3 K/UL (4.8-10.8) H Red Blood Count 4.37 M/UL (4.20-5.40) Hemoglobin 12.6 G/DL (12.0-16.0) Hematocrit 38.6 % (37.0-47.0) Mean Corpuscular Volume 88 FL (80-99) Mean Corpuscular Hemoglobin 28.9 PG (27.0-31.0) Mean Corpuscular Hemoglobin Concent 32.8 G/DL (32.0-36.0) Red Cell Distribution Width 12.8 % (11.6-14.8) Platelet Count 193 K/UL (150-450) Mean Platelet Volume 7.1 FL (6.5-10.1) Neutrophils (%) (Auto) % (45.0-75.0) Lymphocytes (%) (Auto) % (20.0-45.0) Monocytes (%) (Auto) % (1.0-10.0) Eosinophils (%) (Auto) % (0.0-3.0) Basophils (%) (Auto) % (0.0-2.0) Differential Total Cells Counted 100 Neutrophils % (Manual) 89 % (45-75) H Lymphocytes % (Manual) 7 % (20-45) L Monocytes % (Manual) 4 % (1-10) Eosinophils % (Manual) 0 % (0-3) Basophils % (Manual) 0 % (0-2) Band Neutrophils 0 % (0-8) Platelet Estimate Adequate Platelet Morphology Normal Hypochromasia 1+ Sodium Level 144 mEQ/L (135-145) Potassium Level 3.4 mEQ/L (3.4-4.9) Chloride Level 102 mEQ/L (98-107) Carbon Dioxide Level 30 mEQ/L (20-30) Anion Gap 12 (5-15) Blood Urea Nitrogen 14 mg/dL (7-23) Creatinine 0.5 mg/dL (0.5-0.9) Estimat Glomerular Filtration Rate mL/min (>60) Glucose Level 131 mg/dL (74-106) H Calcium Level 9.0 mg/dL (8.6-10.2) Magnesium Level 2.1 mg/dL (1.7-2.5) Current Medications Medications (Trade) Dose Ordered Sig/Carolyn Route PRN Reason Start Time Stop Time Status Last Admin Dose Admin Acetaminophen (Tylenol) 650 mg EVERY 4 HOURS PRN ORAL fever, mild pain, headache 05/11/16 22:45 06/10/16 22:44 05/13/16 21:59 Betamethasone Dipropion Augmented (Diprolene AF) 1 applic BID TOPIC 05/12/16 21:00 06/11/16 20:59 05/13/16 18:19 Cefepime HCl/ Dextrose (Maxipime/D5W) 55 ml @ 110 mls/hr Q24H IVPB 05/12/16 10:00 05/19/16 09:59 05/13/16 10:13 Cetirizine HCl (ZyrTEC) 10 mg BEDTIME ORAL 05/12/16 21:00 06/11/16 20:59 05/13/16 20:49 Colchicine (Colchicine) 0.6 mg Q8H PRN ORAL For Pain 05/12/16 20:30 06/11/16 20:29 05/12/16 22:07 Diazepam (Valium) 5 mg BEDTIME ORAL 05/12/16 21:00 05/19/16 20:59 05/13/16 14:26 Diazepam 5 mg 5 mg DAILYPRN PRN ORAL For Anxiety 05/13/16 13:15 05/20/16 13:14 05/13/16 20:50 Digoxin (Lanoxin) 0.25 mg DAILY ORAL 05/12/16 09:00 06/11/16 08:59 05/14/16 09:03 Diltiazem HCl (Cardizem CD) 180 mg EVERY 12 HOURS ORAL 05/13/16 23:30 06/12/16 23:29 05/14/16 09:02 Diphenhydramine HCl (Benadryl) 25 mg Q6H PRN ORAL Itching 05/12/16 20:15 06/11/16 20:14 Levalbuterol HCl (Xopenex) 0.625 mg Q6H PRN HHN Shortness of Breath 05/13/16 11:50 05/18/16 11:44 05/13/16 11:56 Levothyroxine Sodium (Synthroid) 50 mcg DAILY ORAL 05/14/16 09:00 06/13/16 06:29 05/14/16 09:00 Montelukast Sodium (Singulair) 10 mg DAILY ORAL 05/12/16 09:00 06/11/16 08:59 05/14/16 09:04 Pantoprazole (Protonix) 40 mg 0900,1630 ORAL 05/14/16 09:00 06/12/16 16:29 05/14/16 09:03 Psyllium Hydrophilic Mucilloid (Metamucil) 1 pkt DAILY ORAL 05/13/16 09:00 06/12/16 08:59 05/14/16 08:59 Rivaroxaban (Xarelto) 15 mg QPM ORAL 05/12/16 16:30 06/11/16 16:29 05/13/16 16:20 Tiotropium [place] (Spiriva Inhaler) 1 puff DAILY INH 05/13/16 09:00 06/12/16 08:59 05/13/16 09:24 Vancomycin HCl 1 ea 1 ea DAILY PRN MISC Per rx protocol 05/11/16 22:45 06/10/16 22:44 Vancomycin HCl/ Dextrose (Vancomycin/D5W) 275 ml @ 183.708 mls/hr Q12HR@1100,2300 IVPB 05/13/16 23:00 05/18/16 22:59 05/13/16 22:34 Zolpidem Tartrate (Ambien) 5 mg QHS PRN ORAL insomnia 05/11/16 22:45 06/10/16 22:44 VIKI BACA May 14, 2016 09:21
[2016-05-14] MEDS: Cefepime HCl 1 GM in D5W 55 ML IVPB SCH (10:19)
[2016-05-14] MEDS ORDERED: Digoxin 0.5mg/2ml Inj IVP ONE (12:30)
[2016-05-14] MEDS ORDERED: KCl 10% 20 mEq/15ml liquid ORAL ONE (12:30)
[2016-05-14] MEDS ORDERED: SYNTHROID50 MCG ORAL (15:31)
[2016-05-14] MEDS ORDERED: AUGMENTIN 500-1 EACH ORAL (15:31)
[2016-05-14] MEDS ORDERED: CARDIZEM CD180 MG ORAL (15:31)
--- NOTE | 2016-05-14 15:36 | Discharge Summary ---
Discharge Summary Hospital Course Date of Admission May 11, 2016 at 19:50 Date of Discharge 05/14/16 Admitting Diagnosis rapid afib/SOB HPI Katia Riley is a 75 year old female who was admitted on May 11, 2016 at 19: 50 for Respiratory Distress Consultations cardiology, ID Procedures no Hospital Course fever unkn etiology resolved w abx HR controlled w meds TSH low, thyroid dose reduced dc home Discharge Medications New Medications: Amoxicillin/Potassium Clav 500-125 Tablet* (Augmentin 500-125 Tablet*) 1 Each Tablet 1 TAB ORAL THREE TIMES A DAY, #10 TAB Diltiazem Hcl* (Cardizem Cd*) 180 Mg Cap.er.24h 180 MG ORAL EVERY 12 HOURS, #30 CAP Do not open, chew or crush capsule; swallow whole Levothyroxine Sodium (Synthroid) 50 Mcg Tablet 50 MCG ORAL ACBREAKFAST, #30 TAB Take in the morning on an empty stomach, at least 30 minutes beforefood. Continued Medications: Cetirizine Hcl* (Zyrtec*) 10 Mg Tablet 10 MG ORAL DAILY, #30 TAB 0 Refills Colchicine (Colcrys) 0.6 Mg Tablet 0.6 MG PO PRN for For Pain, TAB Diazepam* (Valium*) 5 Mg Tablet 5 MG ORAL DAILY, #30 TAB 0 Refills Digoxin* (Digoxin*) 0.25 Mg/5 Ml Solution 0.25 MG PO DAILY, ML Montelukast Sodium* (Singulair*) 10 Mg Tablet 10 MG ORAL DAILY, TAB Pantoprazole* (Pantoprazole*) 40 Mg Tablet.dr 40 MG ORAL EVERY 12 HOURS, TAB Rivaroxaban (Xarelto*) 10 Mg Tablet 15 MG ORAL DAILY, #30 TAB 0 Refills Discontinued Medications: Diltiazem Hcl* (Cardizem*) 60 Mg Tablet 100 MG ORAL BID, TAB Hydrochlorothiazide* (Hydrochlorothiazide*) 25 Mg Tablet 25 MG ORAL DAILY, TAB Levothyroxine Sodium* (Levothyroxine Sodium*) 100 Mcg Tablet 100 MCG ORAL DAILY, TAB Take in the morning on an empty stomach, at least 30 minutes before food. Loratadine/Pseudoephedrine (Claritin-D 24 Hour Tablet) 1 Each Tab.er.24h 1 TAB PO DAILY, TAB Nitrofurantoin Monohyd/M-Cryst* (Macrobid 100 Mg*) 100 Mg Capsule 100 MG ORAL EVERY 12 HOURS, CAP Potassium Chloride (Klor-Con 10) 10 Meq Tablet.er 10 MEQ ORAL DAILY, TAB Discharge Condition Upon Discharge: improving Discharge Disposition Patient was discharged to home Discharge Diagnoses: (1) Fever, unknown origin (2) Hyperthyroidism (3) Atrial fibrillation with rapid ventricular response (4) Asthma exacerbation MICHAEL AMADO May 14, 2016 15:35
[2016-05-14] MEDS ORDERED: Xarelto 15mg tab ORAL SCH (16:30)
[2016-05-14] MEDS ORDERED: Tubing IV Secondary IV ONE (17:04)
[2016-05-14] MEDS ORDERED: NS 275ml ONE (17:04)
[2016-05-14] MEDS ORDERED: Levalbuterol Inh UD 1.25mg/0.5ml HHN PRN (18:00)
[2016-05-14] MEDS ORDERED: BETAMETHASONE 0.05% TOPIC SCH (18:00)
[2016-05-14] MEDS ORDERED: Diltiazem CD 180mg cap ORAL SCH (21:00)
[2016-05-14] MEDS ORDERED: Zolpidem 5mg tab ORAL PRN (21:00)
--- NOTE | 2016-05-15 03:18 | Progress Note ---
DATE: 05/14/2016 CARDIOLOGY PROGRESS NOTE SUBJECTIVE: The patient is anxious to go home. She denies chest pain or shortness of breath. No palpitations. She is off Cardizem drip. She is on oral therapy. OBJECTIVE: VITAL SIGNS: Blood pressure is 126/76 and heart rate is in the 70s, but has episodes up to 105 with activity. LUNGS: Coarse breath sounds. No wheezing. HEART: Irregularly irregular rhythm. Normal S1 and S2. ABDOMEN: Soft. EXTREMITIES: Trace edema. Pretibial rash, slightly less erythematous. LABORATORY DATA: White count 18 and hemoglobin 12.6. Potassium 3.4 and magnesium 2.1. IMPRESSION: 1. Chronic atrial fibrillation, better rate controlled. 2. Borderline hypokalemia. 3. Sepsis, improving on empiric therapy. PLAN: 1. Additional potassium. 2. Additional digoxin. 3. Continue current maintenance dose of diltiazem. 4. Mobilize. 5. Monitor heart rate. 6. Discharge planning. Calvin Newell M.D. DR: SHERICE JOB#: [id number] CC:
[2016-05-15] MEDS ORDERED: Metamucil Pkt ORAL SCH (09:00)
[2016-05-15] MEDS ORDERED: Cefepime HCl 1 GM in D5W 55 ML IVPB SCH (10:00)
[2016-05-15] MEDS ORDERED: Montelukast 10mg tablet ORAL SCH (16:30)
--- NOTE | 2016-05-20 16:19 | Diagnostic Imaging Report ---
APPROVED REPORT CPT Code: 16618 Present Symptoms Shortness of breath BILATERAL: Imaging reveals a patent deep venous system bilaterally. There is no evidence of thrombus within the femoral, popliteal or tibial segments. The greater saphenous veins are also within normal limits. Doppler indicates normal spontaneous flow within these segments.
== END 2016-05-14 17:05 | disposition home or self-care (01) | DRG 872 ==
LOC: EDBD 18:39 → EMR 19:22 → EDBEDREQ 19:27 → 2W 19:50 → EDBEDREQ 20:01 → EDBEDREQSVC 21:57 → EDBEDREQ 05-12 07:15 → ICU 05-12 14:26 → 2E 05-14 12:41
DX: A41.9 Sepsis, unspecified organism (principal); I48.2 Chronic atrial fibrillation; I50.32 Chronic diastolic (congestive) heart failure; J45.901 Unspecified asthma with (acute) exacerbation; E87.1 Hypo-osmolality and hyponatremia; I48.91 Unspecified atrial fibrillation; E86.0 Dehydration; E05.90 Thyrotoxicosis, unspecified without thyrotoxic crisis or storm; Z95.0 Presence of cardiac pacemaker; Z88.1 Allergy status to other antibiotic agents; Z88.8 Allergy status to other drugs, medicaments and biological substances; E78.5 Hyperlipidemia, unspecified; R73.9 Hyperglycemia, unspecified; E03.9 Hypothyroidism, unspecified; R23.3 Spontaneous ecchymoses; Z79.01 Long term (current) use of anticoagulants
CPT/HCPCS: 36415; 71010; 80048; 80053; 80162; 80202; 81001; 82550; 82553; 83605; 83735; 83880; 84443; 84484; 85007; 85025; 85610; 86710; 87040; 87081; 87086; 93005; 93306; 93970; 94640; 94664; 94760; J7620